=== PATIENT | male | born 1960 | race Caucasian/White ===

== ENCOUNTER 2021-07-16 19:50 | Emergency (ER) | payer MEDICARE | END 2021-07-16 22:15 | disposition home or self-care (01) | LOC: CSHERS 19:50 | DX: S80.02XA Contusion of left knee, initial encounter (principal); M25.472 Effusion, left ankle; I10 Essential (primary) hypertension; E11.9 Type 2 diabetes mellitus without complications; Z79.899 Other long term (current) drug therapy; Z79.84 Long term (current) use of oral hypoglycemic drugs; W19.XXXA Unspecified fall, initial encounter ==